=== PATIENT | female | born 1985 | race Caucasian/White ===

== ENCOUNTER → 2016-03-24 | Outpatient (REF) | payer OTHER | LOC: M SFHCWAGY 10:31 | PROVIDERS: ATTEND Nurse Practitioner Women's Health | DX: Z12.4 Encounter for screening for malignant neoplasm of cervix (principal) ==

== ENCOUNTER 2016-11-24 11:52 | Emergency (ER) | payer BC, OTHER ==
[~2016-11-24] VITALS: Ht 170.2 cm; Wt 75.0 kg
[2016-11-24] MEDS ORDERED: birth control pills (12:15)
[2016-11-24] MEDS ORDERED: NS 1,000 ML IV SCH (13:07)
[2016-11-24] MEDS ORDERED: METOCLOPRAMIDE INJ 10MG/2ML VIAL (J2765) IV ONE (13:15)
[2016-11-24 13:47] LABS: BASO % 0.1 % (0.0-1.0); EOS % 0.7 % (0.0-3.0); LARGE UNSTAINED CELL # 0.1 K/mm3 (0.0-0.4); LARGE UNSTAINED CELL % 1.3 % (0.0-4.0); LYMPH # 1.2 K/mm3 (1.5-4.5); LYMPH % 18.7 % (24.0-44.0); MEAN CORPUSCULAR HEMOGLOBIN 32.7 pg (27.0-33.0); MONO # 0.3 K/mm3 (0.0-0.8); NEUTROPHILS # 4.9 K/mm3 (1.8-7.7); NEUTROPHILS % 75.2 % (36.0-66.0); PLATELET COUNT, AUTOMATED 280 k/mm3 (150-450); RED CELL DISTRIBUTION WIDTH 12.4 % (11.5-14.5); WHITE BLOOD COUNT 6.6 K/mm3 (4.0-10.0)
[2016-11-24 13:58] LABS: CONTROL LINE HCG INT CTR LINE PRESENT
[2016-11-24 14:05] LABS: ALBUMIN 4.7 GM/DL (3.2-5.2); ALBUMIN/GLOBULIN RATIO 1.34 (1.00-1.93); ALKALINE PHOSPHATASE 36 U/L (45-117); ALT/SGPT 20 U/L (12-78); ANION GAP 10 MEQ/L (8-16); AST/SGOT 28 U/L (15-37); BILIRUBIN,DIRECT 0.2 MG/DL (0.0-0.2); BILIRUBIN,TOTAL 0.7 MG/DL (0.2-1.0); BLOOD UREA NITROGEN 12 MG/DL (7-18); CALCIUM LEVEL 9.4 MG/DL (8.5-10.1); CARBON DIOXIDE LEVEL 27 MEQ/L (21-32); CHLORIDE LEVEL 101 MEQ/L (98-107); CREATININE FOR GFR 0.86 MG/DL (0.55-1.02); GLOMERULAR FILTRATION RATE > 60.0 (>60); GLUCOSE, FASTING 87 MG/DL (70-105); POTASSIUM SERUM 4.2 MEQ/L (3.5-5.1); SODIUM LEVEL 138 MEQ/L (136-145); TOTAL PROTEIN 8.2 GM/DL (6.4-8.2)
--- NOTE | 2016-11-24 14:27 | REP ---
CT of the brain without IV contrast: There is no hemorrhage. There is no edema, mass effect or midline shift. Ventricles are normal size and midline. The cortical stripe is unremarkable. The visualized paranasal sinuses and mastoid air cells are clear. Impression: There is no hemorrhage, acute infarct or mass. Negative CT study of the brain. Signed by Nelson Box MD 11/24/2016 02:18 P
[2016-11-24 15:35] VITALS: BP 116/64
== END 2016-11-24 15:37 | disposition home or self-care (01) ==
LOC: M ED 11:52
DX: R51 Headache (principal)
CPT/HCPCS: 70450; 80048; 80076; 84703; 85025; 93041; 94760; 96374; 99284; J2765

== ENCOUNTER → 2017-04-07 | Outpatient (REF) | payer OTHER ==
[2017-04-09 14:13] LABS: HPV HYBRID CAPTURE II Negative (Negative)
== END ==
LOC: M SFHCWAGY 08:52
DX: Z12.4 Encounter for screening for malignant neoplasm of cervix (principal)

== ENCOUNTER → 2020-02-13 | Outpatient (CLI) | payer OTHER ==
[~2020-02-13] MED LIST: birth control pills
[2020-02-13 07:45] LABS: BASO % 0.3 % (0.0-1.0); EOS # 0.2 10^3/uL (0.0-0.5); EOS % 3.6 % (0.0-3.0); HEMATOCRIT 37.9 % (36.0-47.0); HEMOGLOBIN 12.6 g/dl (12.0-15.5); LYMPH # 2.8 10^3/uL (1.5-5.0); MEAN CORPUSCULAR HEMOGLOBIN 30.1 pg (27.0-33.0); MEAN CORPUSCULAR HGB CONC 33.2 g/dl (32.0-36.5); MEAN CORPUSCULAR VOLUME 90.7 fl (80.0-96.0); MONO # 0.6 10^3/uL (0.0-0.8); MONO % 9.8 % (0.0-5.0); NEUTROPHILS # 2.3 10^3/uL (1.5-8.5); PLATELET COUNT, AUTOMATED 288 10^3/uL (150-450); RED BLOOD COUNT 4.18 10^6/uL (4.00-5.40); WHITE BLOOD COUNT 5.9 10^3/uL (4.0-10.0)
[2020-02-13 08:17] LABS: ALBUMIN 3.6 GM/DL (3.2-5.2); ALT/SGPT 27 U/L (12-78); BILIRUBIN,TOTAL 0.5 MG/DL (0.2-1.0); BLOOD UREA NITROGEN 8 MG/DL (7-18); CALCIUM LEVEL 8.5 MG/DL (8.5-10.1); CARBON DIOXIDE LEVEL 27 MEQ/L (21-32); CHLORIDE LEVEL 105 MEQ/L (98-107); CHOLESTEROL LEVEL 218 MG/DL (<200); CHOLESTEROL RISK RATIO 3.694 (<5); CREATININE FOR GFR 0.74 MG/DL (0.55-1.30); FREE T4 1.06 NG/DL (0.76-1.46); GLOMERULAR FILTRATION RATE > 60.0 (>60); GLUCOSE, FASTING 82 MG/DL (70-100); HDL CHOLESTEROL 59 MG/DL (>40); LDL CHOLESTEROL 129 MG/DL (<100); NON-HDL-C 159 MG/DL; POTASSIUM SERUM 4.1 MEQ/L (3.5-5.1); SODIUM LEVEL 137 MEQ/L (136-145); TOTAL PROTEIN 7.3 GM/DL (6.4-8.2); TRIGLYCERIDES LEVEL 151 MG/DL (<150)
[2020-02-13 09:01] LABS: TOTAL 25(OH) VITAMIN D 36.5 NG/ML (30.0-100.0)
== END ==
LOC: M LAB 07:03
PROVIDERS: ATTEND Physician Assistant
DX: Z13.29 Encounter for screening for other suspected endocrine disorder (principal); Z13.220 Encounter for screening for lipoid disorders

== ENCOUNTER → 2020-10-17 | Outpatient (REF) | payer OTHER | LOC: M SFHCWAGY 13:59 | PROVIDERS: ATTEND Nurse Practitioner Women's Health | DX: Z12.4 Encounter for screening for malignant neoplasm of cervix (principal) | CPT/HCPCS: 87624; G0123 ==

== ENCOUNTER → 2021-11-24 | Outpatient (REF) | payer OTHER | LOC: M WUC 09:48 | PROVIDERS: ATTEND Physician Assistant | DX: N39.0 Urinary tract infection, site not specified (principal) ==

== ENCOUNTER → 2022-09-17 | Outpatient (REF) | payer OTHER | LOC: M LAB REF 12:09 | PROVIDERS: ATTEND Nurse Practitioner Family | DX: R30.0 Dysuria (principal); N39.0 Urinary tract infection, site not specified ==